=== PATIENT | female | born 1965 | race Two or more races ===

== ENCOUNTER 2017-02-19 12:13 | Emergency (ER) | payer SELFPAY ==
[~2017-02-19] VITALS: Ht 157.5 cm; Wt 74.8 kg
[2017-02-19] MEDS ORDERED: Norco 7.5mg/325mg tab ORAL ONE (12:45)
--- NOTE | 2017-02-19 12:59 | Emergency Room Report ---
History of Present Illness General Chief Complaint: Lower Extremity Injury Source: Patient Present Illness HPI The patient is a 51-year-old female visiting for left knee pain. The patient states that she was at work, slipped on a thaddeus petal, and fell directly onto the left knee. She is now describing pain as 10 out of 10 dull ache. Pain does not radiate from the knee. She is unable to ambulate due to the pain. Worse with movement. She denies any numbness or tingling. She denies any previous injury to the knee. She denies any other injury. Allergies: Coded Allergies: No Known Allergies (Unverified , 02/19/17) Patient History Past Medical History: see triage record Pertinent Family History: none Reviewed Nursing Documentation: PMH: Agreed, PSxH: Agreed Nursing Documentation-PMH Past Medical History: No Stated History Review of Systems All Other Systems: negative except mentioned in HPI Physical Exam Vital Signs Date Time Temp Pulse Resp B/P Pulse Ox O2 Delivery O2 Flow Rate FiO2 02/19/17 12:31 97.5 78 18 140/90 98 Room Air Sp02 EP Interpretation: reviewed, normal General Appearance: no apparent distress, alert, GCS 15, non-toxic Head: normocephalic, atraumatic Eyes: bilateral eye PERRL, bilateral eye normal inspection ENT: hearing grossly normal, normal pharynx, no angioedema, normal voice Neck: full range of motion, supple/symm/no masses Respiratory: chest non-tender, lungs clear, normal breath sounds, speaking full sentences Musculoskeletal: decreased range of motion, swelling, tender - TTP over the L anterior knee diffusely Neurologic: alert, oriented x3, responsive, motor strength/tone normal, sensory intact, speech normal Psychiatric: judgement/insight normal, memory normal, mood/affect normal, no suicidal/homicidal ideation Skin: normal color, no rash, warm/dry, well hydrated Lymphatic: no adenopathy Procedures Splinting Splinting : Consent: Verbal Location: L knee Pre-Made Type: knee immobilizer Pre-Proc Neuro Vasc Exam: normal Post-Proc Neuro Vasc Exam: normal Patient Tolerated: Well Complications: None Medical Decision Making PA Attestation Dr. Smiley is my supervising physician. Patient management was discussed with my supervising physician Diagnostic Impression: Primary Impression: Patella fracture Qualified Codes: S82.002A - Unspecified fracture of left patella, initial encounter for closed fracture ER Course The patient is a 51-year-old female visiting for left knee pain. Ddx considered include but not limited to sprain/strain, fracture, contusion, dislocation PE: vitals WNL. NAD L knee: diffuse swelling and TTP over anterior knee. No ecchymosis. No AROM due to pain. 2+ DP pulse SILT. Full AROM of ankle Unable to ambulate with L leg The patient is given pain medication with some relief of pain Left knee x-ray shows displaced left patellar fracture Knee immobilizer is placed She will be discharged home and needs to followup with orthopedics as soon as possible as discussed. ER precautions given Other X-Ray Diagnostic Results Other X-Ray Diagnostic Results : X-Ray Ordered: L knee Date: Feb 19, 2017 EP Interpretation: Yes Findings: other - patellar fracture Number of Views: 3 PA Scribe Text I am acting as scribe for my supervising physician. My supervising physician's interpretation of the L knee xrays are there is a patellar fracture Last Vital Signs Date Time Temp Pulse Resp B/P Pulse Ox O2 Delivery O2 Flow Rate FiO2 02/19/17 12:31 97.5 78 18 140/90 98 Room Air Status: improved Disposition: HOME, SELF-CARE Condition: Improved Scripts Hydrocodone Bit/Acetaminophen 5-325* (NORCO 5-325 TABLET*) 1 Each Tablet 1 TAB ORAL Q6HR Y for For Pain, #10 TAB Prov: TEREUGENIOANRAVINDRA P.A. 02/19/17 Ibuprofen* (MOTRIN*) 600 Mg Tablet 600 MG ORAL Q8H Y for For Pain, #30 TAB 0 Refills Prov: TERZIAN,RAVINDRA P.A. 02/19/17 TERZIAN,RAVINDRA P.A. Feb 19, 2017 12:59
[2017-02-19] MEDS ORDERED: thyroid PO (13:18)
[2017-02-19 13:30] VITALS: BP 110/73
[2017-02-19] MEDS ORDERED: IBUPROFEN600 MG ORAL (13:30)
[2017-02-19] MEDS ORDERED: NORCO 5-325 TA1 EAC1 ORAL (13:30)
[2017-02-19 14:34] VITALS: BP 110/73
--- NOTE | 2017-02-20 08:33 | Diagnostic Imaging Report ---
Indication: Pain 3 views of the left knee were obtained. Findings: There is acute fracture of the upper pole of the patella. The fracture is distracted into superior and inferior poles without distraction space of about 1.7 cm in the craniocaudal dimension. The femur and tibia appear intact. In pression: Acute patellar fracture
== END 2017-02-19 14:34 | disposition home or self-care (01) ==
LOC: EMR 13:00
DX: S82.002A Unspecified fracture of left patella, initial encounter for closed fracture (principal); W01.0XXA Fall on same level from slipping, tripping and stumbling without subsequent striking against object, initial encounter; Y93.9 Activity, unspecified; Y99.0 Civilian activity done for income or pay
CPT/HCPCS: 29530; 99284